=== PATIENT | female | born 1970 | race Caucasian/White ===

== ENCOUNTER 2025-08-10 07:10 | Day surgery (SDC) | payer MEDICAID ==
[~2025-08-10] VITALS: Ht 160 cm; Wt 110.1 kg
[~2025-08-10 07:10] MED LIST: LOSA100T58 PO; ringers solution, lacted 1,000 ML IV SCH; simethicone 40mg/0.6ml oral drops 15ml PO ONE
[2025-08-10 08:00] VITALS: BP 135/78; PULSE 84; RESP 16; TEMP 97.8; O2SAT 97
--- NOTE | 2025-08-10 08:01 | ELECTROCARDIOGRAPH REPORT ---
[facility] Test Date: 2025-08-10 Test Time: 07:58:30 Pat Name: SONG VAN Department: [facility] Patient ID: [facility]-[id number] Room: Gender: F Receiving Inspector: : 1970 Requested By: VASYL GARCIA Order Number: [id number] Reading MD: Dr. Clifford Warner Measurements Intervals [place] Rate: 68 P: -3 TX: 137 QRS: 31 QRSD: 85 T: 34 QT: 419 QTc: 446 Interpretive Statements Sinus rhythm Electronically Signed On 08-10-2025 12:41:[address] Clifford Warner Please click the below link to view image of tracing.
[2025-08-10] MEDS ORDERED: fentaNYL/PF 50MCG/1 ML 2ML syringe ONE (10:28)
[2025-08-10] MEDS ORDERED: midazolam 1 mg/ML 2ml injection ONE (10:30)
[2025-08-10] MEDS ORDERED: propofol inj 20 ML IV ONE ×2 (10:54)
[2025-08-10 10:56] VITALS: BP 143/90; PULSE 82; RESP 15; O2SAT 97
[2025-08-10 11:10] VITALS: BP 149/90; PULSE 79; RESP 20; O2SAT 96
[2025-08-10 11:20] VITALS: BP 158/92; PULSE 77; RESP 18; O2SAT 96
[2025-08-10 11:30] VITALS: BP 163/88; PULSE 75; RESP 13; O2SAT 98
--- NOTE | 2025-08-11 16:35 | PATHOLOGY REPORT ---
[facility] [address] [place] [address] SURGICAL PATHOLOGY REPORT CaseNumber: [id number] Surgeon:Jayme Sullivan PA-C CLINICAL INFORMATION CLINICAL INFORMATION: Screening. DIAGNOSIS DIAGNOSIS: A.COLON, SIGMOID; BIOPSY - BENIGN POLYPOID COLONIC MUCOSA - BENIGN LYMPHOID AGGREGATE DIAGNOSIS: B.COLON, RECTOSIGMOID; BIOPSY - HYPERPLASTIC POLYP MICROSCOPIC DESCRIPTION A. COLON, SIGMOID MICROSCOPIC DESCRIPTION: Three slides representing multiple levels from part a are examined. B. COLON, RECTOSIGMOID MICROSCOPIC DESCRIPTION: One slide is examined. Performed. GROSS DESCRIPTION A. COLON, SIGMOID GROSS DESCRIPTION: Received in a container of formalin labeled with the patient's name, number, and "sigmoid polyps" are 2 pieces of wong tissue 0.3 and 0.5 x 0.3 x 0.2 cm. The specimen is entirely submitted as A1. The time at which the specimen was removed was 1044. The time at which the specimen was placed in formalin was 1045. B. COLON, RECTOSIGMOID GROSS DESCRIPTION: Received in a container of formalin labeled with the patient's name, number, and "rectosigmoid polyp" is a 0.7 x 0.5 x 0.4 cm polypoid piece of wong tissue. The specimen is bisected. The specimen is entirely submitted as B1. The time at which the specimen was removed was 1044. The time at which the specimen was placed in formalin was 1045. Electronically signed by: Lester Alonso M.D. 08/11/2025 4:03:00 PM
== END 2025-08-10 11:36 | disposition home or self-care (01) ==
LOC: PAS 07:10
PROVIDERS: ATTEND Internal Medicine Gastroenterology
DX: Z12.11 Encounter for screening for malignant neoplasm of colon (principal); K57.30 Diverticulosis of large intestine without perforation or abscess without bleeding; K63.5 Polyp of colon; K64.8 Other hemorrhoids; I10 Essential (primary) hypertension; E66.9 Obesity, unspecified; G47.33 Obstructive sleep apnea (adult) (pediatric); Z87.891 Personal history of nicotine dependence; Z98.891 History of uterine scar from previous surgery; Z68.41 Body mass index [BMI] 40.0-44.9, adult
CPT/HCPCS: 45385; 93005; J2250; J2704; J3010; J7120; Z7512; A4615; A4620